=== PATIENT | female | born 1975 | race Caucasian/White ===

== ENCOUNTER 2022-04-25 15:23 | Outpatient (CLI) | payer BC, SELFPAY ==
--- NOTE | 2022-04-25 15:40 | CRLHL7_ITS ---
For Patients: As a result of the Century Cures Act, medical imaging exams and procedure reports are released immediately into your electronic medical record. You may view this report before your referring provider. If you have questions, please contact your health care provider. BILATERAL SCREENING MAMMOGRAM WITH COMPUTER-AIDED DETECTION AND TOMOSYNTHESIS TECHNIQUE: CC and MLO views were obtained. These mammographic images have been obtained using full-field digital technique. These mammographic images were interpreted with the benefit of computer-aided detection. Breast Tomosynthesis was used in this interpretation. COMPARISON FILM: 11/07/20, 08/04/19, 11/11/16. FINDINGS: There are scattered areas of fibroglandular density IMPRESSION: There is no radiographic evidence for malignancy. ASSESSMENT: BI-RADS Category 1: Negative RECOMMENDATION: Routine screening mammogram in 1 year. A lay language report of this examination will be provided to the patient. Mikey Torrez M.D. Diagnostic/Musculoskeletal Radiologist [email or web address] SAMANTHA/Dictated by: Mikey Torrez MD @ 04/26/2022 8:01:00 AM (Electronically Signed)
== END 2022-04-25 15:24 | disposition home or self-care (01) ==
LOC: MAMMO 15:24
PROVIDERS: PCP Family Medicine; Visit Provider Family Medicine
DX: Z12.31 Encounter for screening mammogram for malignant neoplasm of breast (principal)
CPT/HCPCS: 77063; 77067

== ENCOUNTER 2022-07-30 08:35 | Outpatient (CLI) | payer BC, SELFPAY ==
[2022-07-30 13:51] LABS: Chloride* 110 mmol/L (96-114); Potassium* 5.1 mmol/L (3.6-5.1); Sodium* 139 mmol/L (135-149)
[2022-07-30 13:54] LABS: Blood Urea Nitrogen* 15 mg/dL (5-24); Carbon Dioxide* 24 mmol/L (20-32); Cholesterol* 194 mg/dL (90-199); Creatinine* 0.6 mg/dL (0.5-1.5); Estimated Glomerular Filt Rate 112 ml/min
[2022-07-30 13:55] LABS: Calcium* 9.3 mg/dL (8.4-10.6); Glucose* 85 mg/dL (60-115); HDL Cholesterol* 92 mg/dL (>=50); LDL Cholesterol Calculated 94 mg/dL (<100); Triglycerides* 42 mg/dL (40-149)
== END 2022-07-30 08:36 | disposition home or self-care (01) ==
PROVIDERS: PCP Family Medicine; Visit Provider Family Medicine
DX: Z01.419 Encounter for gynecological examination (general) (routine) without abnormal findings (principal); E55.9 Vitamin D deficiency, unspecified; G35 Multiple sclerosis; Z13.1 Encounter for screening for diabetes mellitus; Z13.29 Encounter for screening for other suspected endocrine disorder; Z13.6 Encounter for screening for cardiovascular disorders
CPT/HCPCS: 80048; 80061; 84443

== ENCOUNTER 2025-04-27 14:12 | Outpatient (CLI) | payer BC, SELFPAY ==
--- NOTE | 2025-04-27 14:40 | CRLHL7_ITS ---
For Patients: As a result of the Century Cures Act, medical imaging exams and procedure reports are released immediately into your electronic medical record. You may view this report before your referring provider. If you have questions, please contact your health care provider. INDICATION: BILATERAL SCREENING MAMMMOGRAM, ASYMPTOMATIC 50 Y/O FEMALE COMPARISON: 04/25/2022 TECHNIQUE: Digital mammogram in CC and MLO projections including computer-aided detection (CAD) and tomosynthesis. BREAST COMPOSITION: There are scattered areas of fibroglandular density. FINDINGS: No suspicious findings. ASSESSMENT: BI-RADS 1 Negative RECOMMENDATION: Annual screening mammogram. A lay language report of this examination will be provided to the patient. Dictated by: Terence Vazquez MD @ 04/28/2025 09:19:46 (Electronically Signed)
== END 2025-04-27 14:13 | disposition home or self-care (01) ==
LOC: MAMMO 14:15
PROVIDERS: PCP Family Medicine; Visit Provider Family Medicine
DX: Z12.31 Encounter for screening mammogram for malignant neoplasm of breast (principal)
CPT/HCPCS: 77063; 77067